=== PATIENT | female | born 1975 | race Caucasian/White ===

== ENCOUNTER 2021-03-03 08:47 | Day surgery (SDC) | payer OTHER ==
[~2021-03-03] VITALS: Ht 160 cm; Wt 61.2 kg
--- NOTE | 2021-03-03 09:31 | NUR ---
03/03/21 0931 María Elena Morris PT REFUSED URINE TEST
== END 2021-03-03 11:40 | disposition home or self-care (01) ==
LOC: ORSCSDS 08:47
PROVIDERS: Obstetrics & Gynecology
PROC: 0UDB8ZX Extraction of Endometrium, Via Natural or Artificial Opening Endoscopic, Diagnostic (ICD-10-PCS; principal; 2021-03-03 09:45)
DX: D25.0 Submucous leiomyoma of uterus (principal); N93.8 Other specified abnormal uterine and vaginal bleeding; N71.9 Inflammatory disease of uterus, unspecified
CPT/HCPCS: 88305; A9270; J0690; J1100; J1885; J2405; J2704; J3010; J7120